=== PATIENT | male | born 1990 | race American Indian/Alaskan Native ===

== ENCOUNTER 2017-12-09 02:06 | Emergency (ER) | payer SELFPAY ==
[2017-12-09 03:01] LABS: Basophils # (Auto) 0.1 K/mm3 (0.0-0.1); Basophils % (Auto) 1.9 % (0.0-1.8); Eosinophils # (Auto) 0.3 K/mm3 (0.0-0.4); Eosinophils % (Auto) 5.1 % (0.0-4.3); Hematocrit 37.2 % (35.5-45.6); Hemoglobin 12.6 gm/dl (11.8-15.2); Lymphocytes # (Auto) 1.9 K/mm3 (1.2-5.4); Lymphocytes % (Auto) 33.3 % (13.4-35.0); Mean Corpuscular HGB Conc 34 % (32-34); Mean Corpuscular Hemoglobin 35 pg (28-32); Mean Corpuscular Volume 102 fl (84-94); Monocytes # (Auto) 0.6 K/mm3 (0.0-0.8); Monocytes % (Auto) 9.8 % (0.0-7.3); Platelet Count 276 K/mm3 (140-440); Red Blood Count 3.66 M/mm3 (3.65-5.03); Red Cell Distribution Width 13.6 % (13.2-15.2)
[2017-12-09 03:40] LABS: BUN/Creatinine Ratio 15; Blood Urea Nitrogen 6 mg/dL (9-20); Calcium 8.7 mg/dL (8.4-10.2); Hemolysis Index 22
[2017-12-09] MEDS ORDERED: NORCO 5/325 PO ONE (05:05)
--- NOTE | 2017-12-09 05:10 | Emergency Department Report ---
HPI - General Chief Complaint: Back Pain/Injury Time Seen by Provider: 12/09/17 04:49 - HPI HPI: 27-year-old -[place] male with a past medical history of HIV comes in today for back pain, itchy throat and tooth pain. Patient reports that he had a recurrence of back pain he's been taking Goody Pretty and Tylenol without much relief. Patient denies any recent traumas denies any dysuria denies any bowel or urinary incontinence. Patient also complains of tooth pain. Patient reports he has at least 4 teeth that are rotten to the gums. He reports this has been going on for over a year. Patient also reports of throat discomfort. He was prescribed fluconazole 200 mg to take. Patient does admit to sneezing and runny nose and nasal congestion. Patient reports it is been out of his HIV medication since he was in custodial but has appointment on . Patient reports that he is followed by [facility]. ED Past Medical Hx - Past Medical History Previous Medical History?: Yes Hx Asthma: Yes Hx HIV: Yes Additional medical history: SINUS, BRONCHITIS - Surgical History Past Surgical History?: No - Social History Smoking Status: Never Smoker Substance Use Type: Alcohol - Medications Home Medications: Home Medications Medication Instructions Recorded Confirmed Last Taken Type Acetaminophen/Codeine [Tylenol #3] 1 tab PO Q6H PRN #25 tab 03/17/15 Unknown Rx Doxycycline [Vibramycin CAP] 100 mg PO Q12HR #20 capsule 03/17/15 Unknown Rx Podofilox [Condylox] 3.5 gm TP BID #3.5 gel..gram. 03/17/15 Unknown Rx Acetaminophen/Codeine [Tylenol #3] 1 tab PO Q6H PRN #15 tab 09/17/15 Unknown Rx Cephalexin [Keflex] 500 mg PO Q8HR #30 cap 09/17/15 Unknown Rx Cephalexin [Keflex] 500 mg PO Q12HR #20 cap 06/24/16 Unknown Rx Cetirizine HCl [ZyrTEC] 10 mg PO QDAY #30 capsule 12/09/17 Unknown Rx Ibuprofen [Motrin 600 MG tab] 600 mg PO Q8H PRN #20 tablet 12/09/17 Unknown Rx ED Review of Systems ROS: Stated complaint: BACK PAIN Other details as noted in HPI Constitutional: denies: chills, fever Eyes: denies: eye pain, eye discharge, vision change ENT: throat pain, dental pain, congestion, other (sneezing, rhinorrhea) Respiratory: denies: cough, shortness of breath, wheezing Cardiovascular: denies: chest pain, palpitations Endocrine: no symptoms reported Gastrointestinal: denies: abdominal pain, nausea, diarrhea Genitourinary: denies: urgency, dysuria Musculoskeletal: back pain Skin: denies: rash, lesions Neurological: denies: headache, weakness, paresthesias Psychiatric: denies: anxiety, depression Hematological/Lymphatic: denies: easy bleeding, easy bruising Physical Exam - Physical Exam Vital Signs: Vital Signs 12/09/17 12/09/17 02:07 02:33 Temperature 97.9 F 97.9 F Pulse Rate 88 88 Respiratory 16 16 Rate Blood Pressure 121/83 121/83 O2 Sat by Pulse 99 99 Oximetry Physical Exam: GENERAL APPEARANCE: Well developed, well nourished, in no acute distress. SKIN: Inspection of the skin reveals no rashes, ulcerations or petechiae. HEENT: The sclerae were anicteric and conjunctivae were pink and moist. Extraocular movements were intact and pupils were equal, round, and reactive to light with normal accommodation. External inspection of the ears and nose showed no scars, lesions, or masses. Lips, teeth, and gums showed normal mucosa. The oral mucosa, hard and soft palate, tongue and posterior pharynx were normal. Multiple teeth with large caries and missing structure of the teeth itself NECK: Supple and symmetric. There was no thyroid enlargement, and no tenderness , or masses were felt. CHEST: Normal AP diameter and normal contour without any kyphoscoliosis. LUNGS: Auscultation of the lungs revealed normal breath sounds without any other adventitious sounds or rubs. CARDIOVASCULAR: There was a regular rate and rhythm without any murmurs, gallops , rubs. Peripheral pulses were 2+ and symmetric. MUSCULOSKELETAL: Gait was normal. Paraspinal lower back pain. EXTREMITIES: No cyanosis, clubbing or edema. NEUROLOGIC: Alert and oriented x 3. Normal affect. Gait was normal. Sensation to touch was normal. ED Course Vital Signs 12/09/17 12/09/17 02:07 02:33 Temperature 97.9 F 97.9 F Pulse Rate 88 88 Respiratory 16 16 Rate Blood Pressure 121/83 121/83 O2 Sat by Pulse 99 99 Oximetry ED Medical Decision Making - Lab Data Result diagrams: 12/09/17 02:48 12/09/17 02:48 - Medical Decision Making Patient's been evaluated by this provider fast track. I discussed the patient will give him some pain medication to discharge him with Zyrtec's and ibuprofen for pain. Discussed the patient to keep his appointment with his provider tomorrow A gradient. Patient verbalized understanding. Critical care attestation.: If time is entered above; I have spent that time in minutes in the direct care of this critically ill patient, excluding procedure time. ED Disposition Clinical Impression: Chronic back pain greater than 3 months duration, Chronic dental pain Allergic rhinitis Qualifiers: Allergic rhinitis trigger: unspecified Allergic rhinitis seasonality: unspecified seasonality Qualified Code(s): J30.9 - Allergic rhinitis, unspecified Disposition: DC- TO HOME OR SELFCARE Is pt being admited?: No Does the pt Need Aspirin: No Condition: Stable Instructions: Chronic Back Pain (ED), Allergic Rhinitis (ED) Additional Instructions: Please take pain medication as prescribed. Please take Zyrtec daily as prescribed. Please keep your appointment with your provider tomorrow on . Please follow-up with a dentist. Prescriptions: Cetirizine HCl [ZyrTEC] 10 mg PO QDAY #30 capsule Ibuprofen [Motrin 600 MG tab] 600 mg PO Q8H PRN #20 tablet PRN Reason: Pain Referrals: FORREST SANDERS MD [Primary Care Provider] - 3-5 Days [facility] [Outside] - 3-5 Days
[2017-12-09 05:22] VITALS: BP 115/53
== END 2017-12-09 05:25 | disposition home or self-care (01) ==
LOC: ED 02:06
DX: K08.89 Other specified disorders of teeth and supporting structures (principal); M54.9 Dorsalgia, unspecified; J30.9 Allergic rhinitis, unspecified; J45.909 Unspecified asthma, uncomplicated
CPT/HCPCS: 36415; 80048; 85025; 99283

== ENCOUNTER 2018-10-01 23:52 | Emergency (ER) | payer SELFPAY ==
--- NOTE | 2018-10-02 00:37 | XRay Report ---
FINAL REPORT EXAM: XR CHEST ROUTINE 2V HISTORY: cough TECHNIQUE: PA and lateral views of the chest were submitted. FINDINGS: The heart size and mediastinum appear normal. The lungs are clear. Pleural fluid is not seen. The bon es soft tissues appear normal. IMPRESSION: Normal chest.
[2018-10-02] MEDS ORDERED: TRIMOX PO ONE (01:36)
[2018-10-02] MEDS ORDERED: DECADRON IM ONE (01:36)
[2018-10-02] MEDS ORDERED: IBUPROFEN PO ONE (01:36)
--- NOTE | 2018-10-02 02:02 | Emergency Department Report ---
- General Chief Complaint: Upper Respiratory Infection Stated Complaint: COUGH/FLU LIKE SYMPTOMS Time Seen by Provider: 10/02/18 01:36 Source: patient Mode of arrival: Ambulatory Limitations: No Limitations - History of Present Illness Initial Comments: Patient is a 28-year-old [place] male who is pale 90 ents for URI symptoms including sore throat cough and congestion subjective fever no chills no n/v pt is tolerating po intake without symptoms, Temp is 98.2 f oral in triage today there is no wheezing no sob no stridor. there are no relieving or exacerbating factors. MD Complaint: cough, sore throat, rhinorrhea, nasal congestion, sinus pain Onset/Timin -: days(s) Severity: moderate Severity scale (0 -10): 4 Quality: burning, sharp Consistency: constant Improves With: nothing Worsens With: nothing Context: sick contacts Associated Symptoms: fever, rhinorrhea, nasal congestion, sore throat, cough. denies: chest pain, shortness of breath, abdominal pain, nausea, vomiting, diarrhea, dysuria, rash, confusion, right sweats, weight loss, epistaxis, hoarseness, ear pain Treatments Prior to Arrival: none - Related Data Previous Rx's Medication Instructions Recorded Last Taken Type Acetaminophen/Codeine [Tylenol #3] 1 tab PO Q6H PRN #25 tab 03/17/15 Unknown Rx Doxycycline [Vibramycin CAP] 100 mg PO Q12HR #20 capsule 03/17/15 Unknown Rx Podofilox [Condylox] 3.5 gm TP BID #3.5 gel..gram. 03/17/15 Unknown Rx Acetaminophen/Codeine [Tylenol #3] 1 tab PO Q6H PRN #15 tab 09/17/15 Unknown Rx cephALEXin [Keflex] 500 mg PO Q8HR #30 cap 09/17/15 Unknown Rx cephALEXin [Keflex] 500 mg PO Q12HR #20 cap 06/24/16 Unknown Rx Cetirizine HCl [ZyrTEC] 10 mg PO QDAY #30 capsule 12/09/17 Unknown Rx Ibuprofen [Motrin 600 MG tab] 600 mg PO Q8H PRN #20 tablet 12/09/17 Unknown Rx Amoxicillin [Trimox CAP] 500 mg PO Q8H 10 Days #30 capsule 10/02/18 Unknown Rx Benzocaine/Menth/Cetylpyrd 8 each MM Q2HR PRN #3 packet 10/02/18 Unknown Rx [Cepacol X Strength] Ibuprofen 800 mg PO TID PRN #30 tablet 10/02/18 Unknown Rx Allergies Allergy/AdvReac Type Severity Reaction Status Date / Time TERRY Allergy Swelling Uncoded 03/17/15 07:32 ED Review of Systems ROS: Stated complaint: COUGH/FLU LIKE SYMPTOMS Other details as noted in HPI Constitutional: fever. denies: chills Eyes: denies: eye pain, eye discharge, vision change ENT: throat pain, congestion. denies: ear pain Respiratory: denies: cough, shortness of breath, wheezing Cardiovascular: denies: chest pain, palpitations Endocrine: no symptoms reported Gastrointestinal: denies: abdominal pain, nausea, diarrhea Genitourinary: denies: urgency, dysuria Musculoskeletal: denies: back pain, joint swelling, arthralgia Skin: denies: rash, lesions Neurological: denies: headache, weakness, paresthesias Psychiatric: denies: anxiety, depression Hematological/Lymphatic: denies: easy bleeding, easy bruising ED Past Medical Hx - Past Medical History Hx Asthma: Yes Hx HIV: Yes Additional medical history: SINUS, BRONCHITIS - Surgical History Past Surgical History?: No - Social History Smoking Status: Current Every Day Smoker Substance Use Type: Alcohol - Medications Home Medications: Home Medications Medication Instructions Recorded Confirmed Last Taken Type Acetaminophen/Codeine [Tylenol #3] 1 tab PO Q6H PRN #25 tab 03/17/15 Unknown Rx Doxycycline [Vibramycin CAP] 100 mg PO Q12HR #20 capsule 03/17/15 Unknown Rx Podofilox [Condylox] 3.5 gm TP BID #3.5 gel..gram. 03/17/15 Unknown Rx Acetaminophen/Codeine [Tylenol #3] 1 tab PO Q6H PRN #15 tab 09/17/15 Unknown Rx cephALEXin [Keflex] 500 mg PO Q8HR #30 cap 09/17/15 Unknown Rx cephALEXin [Keflex] 500 mg PO Q12HR #20 cap 06/24/16 Unknown Rx Cetirizine HCl [ZyrTEC] 10 mg PO QDAY #30 capsule 12/09/17 Unknown Rx Ibuprofen [Motrin 600 MG tab] 600 mg PO Q8H PRN #20 tablet 12/09/17 Unknown Rx Amoxicillin [Trimox CAP] 500 mg PO Q8H 10 Days #30 capsule 10/02/18 Unknown Rx Benzocaine/Menth/Cetylpyrd 8 each MM Q2HR PRN #3 packet 10/02/18 Unknown Rx [Cepacol X Strength] Ibuprofen 800 mg PO TID PRN #30 tablet 10/02/18 Unknown Rx ED Physical Exam - General Limitations: No Limitations General appearance: alert, in no apparent distress - Head Head exam: Present: atraumatic, normocephalic - Eye Eye exam: Present: normal appearance, PERRL, EOMI Pupils: Present: normal accommodation - ENT ENT exam: Present: mucous membranes moist, TM's normal bilaterally, normal external ear exam - Expanded ENT Exam Expanded Mouth exam: Absent: trismus Throat exam: Positive: tonsillar erythema, tonsillomegaly, tonsillar exudate (mild exudate no lesions ), R peritonsillar mass, L peritonsillar mass, other (uvula midline, no stridor no wheezing mild ) - Neck Neck exam: Present: normal inspection, tenderness, full ROM, lymphadenopathy. Absent: thyromegaly - Respiratory Respiratory exam: Present: normal lung sounds bilaterally. Absent: respiratory distress, wheezes, stridor, chest wall tenderness - Cardiovascular Cardiovascular Exam: Present: regular rate, normal rhythm, normal heart sounds. Absent: systolic murmur, diastolic murmur, rubs, gallop - GI/Abdominal GI/Abdominal exam: Present: soft, normal bowel sounds. Absent: tenderness, bruit, hernia - Rectal Rectal exam: Present: deferred - Extremities Exam Extremities exam: Present: normal inspection, full ROM. Absent: tenderness - Back Exam Back exam: Present: normal inspection, full ROM. Absent: tenderness, CVA tenderness (R), CVA tenderness (L) - Neurological Exam Neurological exam: Present: alert, oriented X3, CN II-XII intact, normal gait - Psychiatric Psychiatric exam: Present: normal affect, normal mood - Skin Skin exam: Present: warm, dry, intact, normal color. Absent: rash ED Course Vital Signs 10/02/18 00:06 Temperature 98.2 F Pulse Rate 102 H Respiratory 18 Rate Blood Pressure 125/83 O2 Sat by Pulse 98 Oximetry ED Medical Decision Making - Radiology Data Radiology results: report reviewed, image reviewed Patient: TABITHADEAN JR MR#: [id number] : 1990 Acct:[id number] Age/Sex: 28 / M ADM Date: 10/01/18 Loc: ED Attending Dr: Ordering Physician: DANAE OAKLEY MD Date of Service: 10/02/18 Procedure(s): XR chest routine 2V Accession Number(s): [id number] cc: DANAE OAKLEY MD Fluoro Time In Minutes: FINAL REPORT EXAM: XR CHEST ROUTINE 2V HISTORY: cough TECHNIQUE: PA and lateral views of the chest were submitted. FINDINGS: The heart size and mediastinum appear normal. The lungs are clear. Pleural fluid is not seen. The bones soft tissues appear normal. IMPRESSION: Normal chest. Transcribed By: RB Dictated By: JOSE CHOI MD Electronically Authenticated By: JOSE CHOI MD Signed Date/Time: 10/02/1836 DD/ TD/TT: 10/02/1835 - Medical Decision Making this is pharyngitis plan: ibuprofen, amoxicillin, decadron, follow up with pcp in 2-3 days pt given referral to [facility] in 2-3 days. pt verbalized agreement and understanding with discharge plan. Critical care attestation.: If time is entered above; I have spent that time in minutes in the direct care of this critically ill patient, excluding procedure time. ED Disposition Clinical Impression: Pharyngitis Qualifiers: Pharyngitis/tonsillitis etiology: unspecified etiology Qualified Code(s): J02.9 - Acute pharyngitis, unspecified Disposition: - TO HOME OR SELFCARE Is pt being admited?: No Does the pt Need Aspirin: No Condition: Stable Instructions: Pharyngitis (ED) Prescriptions: Amoxicillin [Trimox CAP] 500 mg PO Q8H 10 Days #30 capsule Benzocaine/Menth/Cetylpyrd [Cepacol X Strength] 8 each MM Q2HR PRN #3 packet PRN Reason: Throat Pain Ibuprofen 800 mg PO TID PRN #30 tablet PRN Reason: pain fever Referrals: [facility] [Outside] - 3-5 Days Forms: Work/School Release Form(ED) Time of Disposition:
[2018-10-03 13:06] VITALS: BP 125/83
== END 2018-10-02 02:43 | disposition home or self-care (01) ==
LOC: ED 23:52
DX: J02.9 Acute pharyngitis, unspecified (principal); J45.909 Unspecified asthma, uncomplicated; F17.200 Nicotine dependence, unspecified, uncomplicated; Z91.018 Allergy to other foods; Z21 Asymptomatic human immunodeficiency virus [HIV] infection status
CPT/HCPCS: 71046; 87116; 87430; 96372; 99284; J1100

== ENCOUNTER 2018-11-30 02:35 | Emergency (ER) | payer OTHER ==
[2018-11-30 02:44] VITALS: BP 128/97
[2018-11-30 03:16] LABS: Hematocrit 42.4 % (35.5-45.6); Hemoglobin 14.5 gm/dl (11.8-15.2); Mean Corpuscular HGB Conc 34 % (32-34); Mean Corpuscular Volume 104 fl (84-94); Platelet Count 181 K/mm3 (140-440); Red Blood Count 4.08 M/mm3 (3.65-5.03); Red Cell Distribution Width 13.8 % (13.2-15.2)
[2018-11-30 03:24] LABS: BUN/Creatinine Ratio 10; Blood Urea Nitrogen 5 mg/dL (9-20); Calcium 9.2 mg/dL (8.4-10.2); Hemolysis Index 19
--- NOTE | 2018-11-30 03:55 | Emergency Department Report ---
Blank Doc - Documentation Documentation: I reviewed concerns of Mr. Brand. He has decided to leave A. He has decision making capacity. Nurse witnessed discussion.
[2018-11-30 04:24] LABS: Total Cells Counted 100
[2018-11-30 04:25] LABS: Platelet Estimate Consistent w Auto; Tear Drop Cells Few
== END 2018-11-30 04:17 | disposition left against medical advice (07) ==
LOC: ED 02:35
DX: R05 Cough (principal); Z53.21 Procedure and treatment not carried out due to patient leaving prior to being seen by health care provider
CPT/HCPCS: 36415; 80048; 85007; 85025; G0480; 80320

== ENCOUNTER 2019-01-15 21:35 | Emergency (ER) | payer SELFPAY ==
[2019-01-15 21:50] VITALS: BP 125/84
[2019-01-15 22:46] LABS: Bilirubin,Urine NEG (Negative); Blood,Urine NEG (Negative); Color,Urine Yellow (Yellow); Urobilinogen,Urine < 2.0 mg/dL (<2.0); WBC,Urine < 1.0 /HPF (0.0-6.0)
[2019-01-15 22:53] LABS: Basophils # (Auto) 0.1 K/mm3 (0.0-0.1); Basophils % (Auto) 1.8 % (0.0-1.8); Eosinophils # (Auto) 0.1 K/mm3 (0.0-0.4); Eosinophils % (Auto) 2.6 % (0.0-4.3); Hematocrit 37.4 % (35.5-45.6); Hemoglobin 13.1 gm/dl (11.8-15.2); Lymphocytes # (Auto) 2.3 K/mm3 (1.2-5.4); Lymphocytes % (Auto) 44.7 % (13.4-35.0); Mean Corpuscular HGB Conc 35 % (32-34); Mean Corpuscular Volume 103 fl (84-94); Monocytes # (Auto) 0.3 K/mm3 (0.0-0.8); Monocytes % (Auto) 6.2 % (0.0-7.3); Platelet Count 237 K/mm3 (140-440); Red Blood Count 3.63 M/mm3 (3.65-5.03); Red Cell Distribution Width 15.5 % (13.2-15.2)
--- NOTE | 2019-01-15 23:13 | XRay Report ---
EXAM: XR CHEST 1V AP HISTORY: Chest Pain TECHNIQUE: AP chest x-ray dated 01/15/2019 at 10:16 PM. COMPARISON: Chest x-ray dated October 02, 2018 FINDINGS: The heart size and mediastinum are within normal limits. The lung pruett and costophrenic angles are clear. There is no acute parenchymal infiltrate, pleural effusion, or pneumothorax seen. The visua lized bony structures are within normal limits. IMPRESSION: 1. No evidence for acute cardiopulmonary disease seen. 2. No significant interval change from the previous exam. This document is electronically signed by Anita Miller MD., Jan 15 2019 11:11:36 PM ET
[2019-01-15 23:16] LABS: Alanine Aminotransferase 27 units/L (7-56); Albumin 4.3 g/dL (3.9-5); BUN/Creatinine Ratio 13; Blood Urea Nitrogen 8 mg/dL (9-20); Calcium 8.5 mg/dL (8.4-10.2); Hemolysis Index 11
== END 2019-01-16 01:11 | disposition left against medical advice (07) ==
LOC: ED 21:35
DX: R07.9 Chest pain, unspecified (principal); Z53.21 Procedure and treatment not carried out due to patient leaving prior to being seen by health care provider
CPT/HCPCS: 36415; 71045; 80053; 81001; 85025; 93005; 93010